=== PATIENT | male | born 1975 | race Two or more races ===

== ENCOUNTER 2020-02-11 11:27 | Emergency (ER) | payer OTHER ==
[~2020-02-11] VITALS: Ht 177.8 cm; Wt 74.8 kg
--- NOTE | 2020-02-11 11:36 | NUR ---
PT AMBULATORY TO ER BED 06 ACCOMPANIED BY FAMILY C/O SOB, L SIDED CHEST DISCOMFORT PAIN WHEN BREATHING BEEN GOING ON X 3 DAYS. PT ADMITS TO SMOKING A PACK A DAY. PLACED ON MONITOR. AWAITING MD JEAN.
--- NOTE | 2020-02-11 11:40 | NUR ---
PATIENT CAME IN TO THE C/O SHORTNESS OF BREATH, COUGH FOR FOR THE PAST 3 DAYS. ON ROOM AIR, CONNECTED TO THE MONITOR AND PULSE OX. KEPT COMFORTABLE, WILL CONTINUE TO MONITOR ACCORDINGLY.
--- NOTE | 2020-02-11 11:57 | NUR ---
DR MONTELONGO AT BEDSIDE FOR EVAL.
--- NOTE | 2020-02-11 12:20 | NUR ---
LAWN SPRINKLER SERVICER AT BEDSIDE FOR BLOOD DRAW.
[2020-02-11 12:33] LABS: BASOPHILS % (AUTO) 0.5 % (0.0-2.0); HEMATOCRIT 48 % (39-51); HEMOGLOBIN 15.9 g/dL (13.5-17.5); LYMPHOCYTES # (AUTO) 1.3 /CMM (0.8-4.8); LYMPHOCYTES % (AUTO) 27.1 % (20.0-44.0); MEAN CORPUSCULAR HGB CONC 33 g/dl (31.0-36.0); MEAN CORPUSCULAR VOLUME 96 fL (80-96); MONOCYTES # (AUTO) 0.3 /CMM (0.1-1.30); MONOCYTES % (AUTO) 5.6 % (2.0-12.0); NEUTROPHILS # (AUTO) 3.2 /CMM (1.8-8.9); NEUTROPHILS % (AUTO) 65.8 % (43.0-81.0); PLATELET COUNT (AUTO) 164 /CMM (150-450); RED BLOOD CELL COUNT(AUTO) 4.97 MIL/uL (4.5-6.0); WHITE BLOOD COUNT (AUTO) 4.8 K/uL (4.3-11.0)
[2020-02-11 12:45] LABS: CALCIUM, SERUM 9.4 mg/dL (8.5-10.1); CARBON DIOXIDE 33 mmol/L (21-32); CHLORIDE 106 mmol/L (98-107); GLUCOSE 106 mg/dL (74-106); POTASSIUM 4.4 mmol/L (3.5-5.1); SODIUM SERUM 145 mmol/L (136-145); UREA NITROGEN, BLOOD 14 mg/dL (7-18)
[2020-02-11 13:25] VITALS: BP 128/71
--- NOTE | 2020-02-11 13:26 | NUR ---
Patient discharged to home in stable condition. Written and verbal after care instructions given. Patient verbalizes understanding of instruction.
== END 2020-02-11 13:26 | disposition home or self-care (01) ==
LOC: ER 11:38
DX: R07.89 Other chest pain (principal); R94.31 Abnormal electrocardiogram [ECG] [EKG]
CPT/HCPCS: 36415; 71045-TC; 80048-TC; 84484-TC; 85025-TC